=== PATIENT | male | born 1990 | race Caucasian/White ===

== ENCOUNTER 2016-10-15 21:28 | Inpatient (IN) | payer OTHER ==
[~2016-10-15] VITALS: Ht 177.8 cm; Wt 112.0 kg
[~2016-10-15 21:28] MED LIST: INVEGA SUS117 MG/0.7 IM; MOTRIN600 MG PO; PERCOCET 5/31 TABLET PO
[2016-10-15 22:44] LABS: EOSINOPHIL COUNT 0.3 K/uL (0-0.3); HEMATOCRIT 39.8 % (38.0-50.0); IMMATURE GRANULOCYTE (%) 0.4 % (0.0-0.7); INSTRUMENT ABS NEUTROPHIL CT 4.1 K/uL; LYMPHOCYTE COUNT 1.1 K/uL (1.0-2.8); MCH 25.1 PG (29.0-34.0); MCHC 32.2 G/DL (30.0-36.0); MONOCYTE (%) 16.6 % (3-12); MONOCYTE COUNT 1.1 K/uL (0-0.8); NEUTROPHIL (%) 61.6 % (45-76); NEUTROPHIL COUNT 4.1 K/uL (1.8-6.4); PLATELET COUNT 392 K/uL (156-360); RBC DIS.WIDTH-SD 47.7 % (39-53); WHITE BLOOD COUNT 6.7 K/uL (4.1-10.2)
[2016-10-15 22:54] LABS: CHLORIDE 101 mEq/L (99-109); POTASSIUM 3.4 mEq/L (3.7-5.4); SODIUM 138 mEq/L (136-147)
[2016-10-15 22:57] LABS: GLUCOSE 135 mg/dL (70-99)
[2016-10-15 22:58] LABS: ANION GAP 14 MEQ/L (2-14)
[2016-10-15 22:59] LABS: TOTAL BILIRUBIN 0.3 mg/dL (0.0-1.0)
[2016-10-15 23:00] LABS: ALKALINE PHOSPHATASE 137 IU/L (3-129); GFR ESTIMATE (CALCULATED) > 59 mL/min/; SERUM ETHYL ALCOHOL < 10 mg/dL
[2016-10-15 23:02] LABS: UREA NITROGEN (BUN) 6 mg/dL (9-23)
[2016-10-15 23:25] LABS: TROP-I INTERPRETATION NEGATIVE; TROPONIN-I < 0.01 ng/mL (0.0-0.30)
[2016-10-16 00:32] LABS: AMPHETAMINE NEGATIVE (500 ng/mL); BARBITURATES NEGATIVE (200 ng/mL); BENZODIAZEPINES NEGATIVE (150 ng/mL); COCAINE NEGATIVE (150 ng/mL); METHADONE NEGATIVE (200 ng/mL); METHAMPHETAMINE NEGATIVE (500 ng/mL); OPIATES (MORPHINE) NEGATIVE (100 ng/mL); OXYCODONE NEGATIVE (100 ng/mL); PHENCYCLIDINE NEGATIVE (25 ng/mL); PROPOXYPHENE NEGATIVE (300 ng/mL); THC CANNABINOIDS NEGATIVE (50 ng/mL); TRICYCLIC ANTIDEPRESSANTS NEGATIVE (300 ng/mL)
[2016-10-16 00:33] LABS: INTERNAL CONTROLS VALID? YES
[2016-10-16 07:52] VITALS: BP 119/61; BP 125/63
[2016-10-16 15:17] VITALS: BP 117/59
[2016-10-17 07:29] VITALS: BP 135/77
[2016-10-17] MEDS ORDERED: HALDOL5 MG PO (10:39)
[2016-10-17] MEDS ORDERED: GEODON20 MG PO (18:33)
== END 2016-10-17 12:31 | disposition home or self-care (01) | DRG 885 ==
LOC: EME 21:28 → EDOF 23:44 → ENRESERV 10-16 00:46 → 1WEST 10-16 01:42
PROVIDERS: Emergency Medicine
DX: F20.0 Paranoid schizophrenia (principal); R07.9 Chest pain, unspecified; G47.00 Insomnia, unspecified; F12.90 Cannabis use, unspecified, uncomplicated; Z81.8 Family history of other mental and behavioral disorders; Z91.19 Patient's noncompliance with other medical treatment and regimen; Z59.0 Homelessness
CPT/HCPCS: 80053; 84484; 85025; 90839; 93005; 97150 GO; 97166 GO; 99281; 99285; G0480; J7030

== ENCOUNTER 2016-10-17 17:45 | Emergency (ER) | payer OTHER ==
[~2016-10-17] VITALS: Ht 180.3 cm; Wt 105.8 kg
[~2016-10-17 17:45] MED LIST changes: +HALDOL5 MG PO
[2016-10-17] MEDS ORDERED: GEODON20 MG PO (18:33)
[2016-10-17 19:00] VITALS: BP 148/88
== END 2016-10-17 19:01 | disposition home or self-care (01) ==
LOC: EME 17:45
DX: G24.09 Other drug induced dystonia (principal); T43.4X5A Adverse effect of butyrophenone and thiothixene neuroleptics, initial encounter; F20.0 Paranoid schizophrenia; F32.9 Major depressive disorder, single episode, unspecified; F17.200 Nicotine dependence, unspecified, uncomplicated
CPT/HCPCS: 99281; 99284; J1200

== ENCOUNTER 2016-12-10 20:58 | Emergency (ER) | payer OTHER ==
[~2016-12-10] VITALS: Ht 180.3 cm; Wt 114.4 kg
[~2016-12-10 20:58] MED LIST changes: +GEODON20 MG PO
[2016-12-10] MEDS ORDERED: GEODON20 MG PO (21:59)
[2016-12-10 22:10] VITALS: BP 135/85
== END 2016-12-10 22:11 | disposition home or self-care (01) ==
LOC: EME → EDBD 20:58 → EME 20:58
DX: R10.9 Unspecified abdominal pain (principal); F20.9 Schizophrenia, unspecified; Z76.0 Encounter for issue of repeat prescription; F32.9 Major depressive disorder, single episode, unspecified; F17.200 Nicotine dependence, unspecified, uncomplicated; Z59.0 Homelessness
CPT/HCPCS: 99281; 99283

== ENCOUNTER 2016-12-19 13:24 | Inpatient (IN) | payer OTHER ==
[~2016-12-19] VITALS: Ht 175.3 cm; Wt 112.8 kg
[2016-12-19 14:16] LABS: HEMATOCRIT 39.6 % (38.0-50.0); MCHC 33.1 G/DL (30.0-36.0); MCV 78.7 FL (86-99); MEAN PLAT.VOLUME 8.8 uM^3 (9.0-12.4); PLATELET COUNT 344 K/uL (156-360); RBC DIS.WIDTH-CV 17.1 % (11.8-14.6); RBC DIS.WIDTH-SD 48.5 % (39-53); RED BLOOD COUNT 5.03 M/uL (4.00-5.50); WHITE BLOOD COUNT 6.3 K/uL (4.1-10.2)
[2016-12-19 14:43] LABS: ADD MEDTOX COMMENT Y; AMPHETAMINE NEGATIVE (500 ng/mL); BARBITURATES NEGATIVE (200 ng/mL); BENZODIAZEPINES NEGATIVE (150 ng/mL); COCAINE NEGATIVE (150 ng/mL); INTERNAL CONTROLS VALID? YES; METHADONE NEGATIVE (200 ng/mL); METHAMPHETAMINE NEGATIVE (500 ng/mL); OPIATES (MORPHINE) NEGATIVE (100 ng/mL); OXYCODONE NEGATIVE (100 ng/mL); PHENCYCLIDINE NEGATIVE (25 ng/mL); PROPOXYPHENE NEGATIVE (300 ng/mL); THC CANNABINOIDS PRESUMPTIVE POSITIVE (50 ng/mL); TRICYCLIC ANTIDEPRESSANTS NEGATIVE (300 ng/mL)
[2016-12-19 14:47] LABS: CHLORIDE 101 mEq/L (99-109); POTASSIUM 3.3 mEq/L (3.7-5.4); SODIUM 137 mEq/L (136-147)
[2016-12-19 14:49] LABS: GLUCOSE 194 mg/dL (70-99)
[2016-12-19 14:50] LABS: ANION GAP 12 MEQ/L (2-14)
[2016-12-19 14:52] LABS: SERUM ETHYL ALCOHOL < 10 mg/dL
[2016-12-19 14:53] LABS: GFR ESTIMATE (CALCULATED) > 59 mL/min/
[2016-12-19 14:54] LABS: UREA NITROGEN (BUN) 9 mg/dL (9-23)
[2016-12-19 16:47] VITALS: BP 127/81
[2016-12-19 16:58] VITALS: BP 127/81
[2016-12-19] MEDS ORDERED: MOTRIN400 MG PO (17:28)
[2016-12-20 07:44] VITALS: BP 125/77
[2016-12-20 15:26] VITALS: BP 139/66
[2016-12-21 07:24] VITALS: BP 132/67
[2016-12-21 16:08] VITALS: BP 122/78
[2016-12-21 22:32] VITALS: BP 141/89
[2016-12-22 08:00] VITALS: BP 134/75
== END 2016-12-22 11:21 | disposition home or self-care (01) | DRG 885 ==
LOC: EME 13:24 → 1WEST 15:38 → EDOF 15:38 → ENRESERV 15:59 → 1WEST 16:38
PROVIDERS: Emergency Medicine
DX: F20.0 Paranoid schizophrenia (principal); F17.200 Nicotine dependence, unspecified, uncomplicated; R45.851 Suicidal ideations; Z91.14 Patient's other noncompliance with medication regimen; Z59.0 Homelessness; Z81.8 Family history of other mental and behavioral disorders
CPT/HCPCS: 80048; 84999; 85027; 90839; 97150 GO; 97165 GO; 99281; 99285; G0480; Q0177

== ENCOUNTER 2016-12-25 21:41 | Inpatient (IN) | payer OTHER ==
[~2016-12-25] VITALS: Ht 180.3 cm; Wt 109.7 kg
[~2016-12-25 21:41] MED LIST changes: +MOTRIN400 MG PO
[2016-12-25 22:07] LABS: HEMATOCRIT 38.8 % (38.0-50.0); MCH 26.5 PG (29.0-34.0); MCHC 32.7 G/DL (30.0-36.0); MEAN PLAT.VOLUME 8.9 uM^3 (9.0-12.4); PLATELET COUNT 307 K/uL (156-360); RBC DIS.WIDTH-CV 17.2 % (11.8-14.6); RBC DIS.WIDTH-SD 50.1 % (39-53); RED BLOOD COUNT 4.79 M/uL (4.00-5.50); WHITE BLOOD COUNT 5.1 K/uL (4.1-10.2)
[2016-12-25 22:20] LABS: CHLORIDE 104 mEq/L (99-109); POTASSIUM 3.3 mEq/L (3.7-5.4); SODIUM 139 mEq/L (136-147)
[2016-12-25 22:22] LABS: GLUCOSE 96 mg/dL (70-99)
[2016-12-25 22:23] LABS: ANION GAP 9 MEQ/L (2-14)
[2016-12-25 22:25] LABS: SERUM ETHYL ALCOHOL < 10 mg/dL
[2016-12-25 22:26] LABS: GFR ESTIMATE (CALCULATED) > 59 mL/min/
[2016-12-25 22:27] LABS: UREA NITROGEN (BUN) 7 mg/dL (9-23)
[2016-12-26 00:05] LABS: AMPHETAMINE NEGATIVE (500 ng/mL); BARBITURATES NEGATIVE (200 ng/mL); BENZODIAZEPINES NEGATIVE (150 ng/mL); COCAINE NEGATIVE (150 ng/mL); INTERNAL CONTROLS VALID? YES; METHADONE NEGATIVE (200 ng/mL); METHAMPHETAMINE NEGATIVE (500 ng/mL); OPIATES (MORPHINE) NEGATIVE (100 ng/mL); OXYCODONE NEGATIVE (100 ng/mL); PHENCYCLIDINE NEGATIVE (25 ng/mL); PROPOXYPHENE NEGATIVE (300 ng/mL); THC CANNABINOIDS NEGATIVE (50 ng/mL); TRICYCLIC ANTIDEPRESSANTS NEGATIVE (300 ng/mL)
[2016-12-26 00:38] VITALS: BP 112/70
[2016-12-26 07:42] VITALS: BP 127/66
[2016-12-26 17:59] VITALS: BP 139/66
[2016-12-27 08:07] VITALS: BP 124/75
[2016-12-27 15:47] VITALS: BP 129/80
[2016-12-28 07:40] VITALS: BP 112/58
[2016-12-28 15:16] VITALS: BP 138/69
[2016-12-29 08:53] VITALS: BP 130/76
[2016-12-29 15:24] VITALS: BP 108/68
[2016-12-30 15:23] VITALS: BP 121/67
[2016-12-31 16:13] VITALS: BP 129/74
[2017-01-01 07:39] VITALS: BP 124/58
[2017-01-01 16:06] VITALS: BP 127/67
[2017-01-02 07:59] VITALS: BP 141/68
[2017-01-02 15:42] VITALS: BP 105/53
[2017-01-03 07:35] VITALS: BP 108/6
[2017-01-03] MEDS ORDERED: RISPERDAL3 MG PO (11:09)
[2017-01-03] MEDS ORDERED: COGENTIN0.5 MG PO (11:09)
[2017-01-03] MEDS ORDERED: TRILAFON2 MG PO (11:09)
== END 2017-01-03 11:16 | disposition home or self-care (01) | DRG 885 ==
LOC: EME → EDBD 21:41 → 1WEST 22:53 → EDOF 22:53 → 1WEST 22:53 → ENRESERV 12-26 00:19 → 1WEST 12-26 00:29
DX: F20.0 Paranoid schizophrenia (principal); R45.851 Suicidal ideations; R41.83 Borderline intellectual functioning; F17.200 Nicotine dependence, unspecified, uncomplicated; Z81.8 Family history of other mental and behavioral disorders
CPT/HCPCS: 80048; 85027; 90837; 93005; 97150 GO; 97166 GO; 99281; 99285; G0480; J2794; Q0175

== ENCOUNTER 2017-02-22 13:34 | Emergency (ER) | payer OTHER ==
[~2017-02-22] VITALS: Ht 180.3 cm; Wt 126.0 kg
[~2017-02-22 13:34] MED LIST changes: +COGENTIN0.5 MG PO; +RISPERDAL3 MG PO; +TRILAFON2 MG PO
[2017-02-22 14:27] LABS: HEMOGLOBIN 14.7 G/DL (12.5-16.6); MCH 29.2 PG (29.0-34.0); MCV 83.3 FL (86-99); PLATELET COUNT 343 K/uL (156-360); RBC DIS.WIDTH-CV 16.2 % (11.8-14.6); RBC DIS.WIDTH-SD 49.4 % (39-53); RED BLOOD COUNT 5.04 M/uL (4.00-5.50); WHITE BLOOD COUNT 6.9 K/uL (4.1-10.2)
[2017-02-22 14:37] LABS: CHLORIDE 103 mEq/L (99-109); POTASSIUM 3.3 mEq/L (3.7-5.4); SODIUM 136 mEq/L (136-147)
[2017-02-22 14:39] LABS: GLUCOSE 134 mg/dL (70-99)
[2017-02-22 14:42] LABS: GFR ESTIMATE (CALCULATED) > 59 mL/min/ (58.99-99999); SERUM ETHYL ALCOHOL < 10 mg/dL
[2017-02-22 14:43] LABS: UREA NITROGEN (BUN) 6 mg/dL (9-23)
[2017-02-22 16:57] LABS: COCAINE NEGATIVE (150 ng/mL); METHAMPHETAMINE NEGATIVE (500 ng/mL); OPIATES (MORPHINE) NEGATIVE (100 ng/mL); PHENCYCLIDINE NEGATIVE (25 ng/mL); THC CANNABINOIDS PRESUMPTIVE POSITIVE (50 ng/mL)
[2017-02-22 16:58] LABS: AMPHETAMINE NEGATIVE (500 ng/mL); BARBITURATES NEGATIVE (200 ng/mL); BENZODIAZEPINES NEGATIVE (150 ng/mL); BUPRENORPHINE NEGATIVE (10 ng/mL); METHADONE NEGATIVE (200 ng/mL); OXYCODONE NEGATIVE (100 ng/mL); PROPOXYPHENE NEGATIVE (300 ng/mL); TRICYCLIC ANTIDEPRESSANTS NEGATIVE (300 ng/mL)
[2017-02-23 11:46] VITALS: BP 133/73
== END 2017-02-23 13:26 ==
LOC: EME 13:34
DX: F20.9 Schizophrenia, unspecified (principal); F22 Delusional disorders; F12.90 Cannabis use, unspecified, uncomplicated; F17.200 Nicotine dependence, unspecified, uncomplicated
CPT/HCPCS: 80048; 84999; 85027; 90837; 99281; 99285; G0480; J1630